=== PATIENT | male | born 1945 | race Two or more races ===

== ENCOUNTER 2022-07-15 13:54 | Inpatient (IN) | payer OTHER ==
[~2022-07-15] VITALS: Ht 172.7 cm; Wt 78.0 kg
--- NOTE | 2022-07-15 14:10 | NUR ---
Patient AOx4 able to express his concern. Per pts request, daughter at bedside. Daughter providing medical history, patient with no signs of distress or discomfort. Discussed plan of care, pt verbalized agreement.
[2022-07-15 14:48] LABS: BASOPHILS % (AUTO) 0.4 % (0.0-2.0); EOSINOPHILS % (AUTO) 6.3 % (0.0-6.0); HEMATOCRIT 43 % (39-51); HEMOGLOBIN 14.3 g/dL (13.5-17.5); LYMPHOCYTES # (AUTO) 1.4 K/uL (0.8-4.8); LYMPHOCYTES % (AUTO) 31.3 % (20.0-44.0); MEAN CORPUSCULAR HGB CONC 33 g/dl (31.0-36.0); MEAN CORPUSCULAR VOLUME 84 fL (80-96); MONOCYTES # (AUTO) 0.3 K/uL (0.1-1.30); MONOCYTES % (AUTO) 7.1 % (2.0-12.0); NEUTROPHILS # (AUTO) 2.4 K/uL (1.8-8.9); NEUTROPHILS % (AUTO) 54.9 % (43.0-81.0); PLATELET COUNT (AUTO) 100 K/uL (150-450); RED BLOOD CELL COUNT(AUTO) 5.16 MIL/uL (4.5-6.0); WHITE BLOOD COUNT (AUTO) 4.4 K/uL (4.3-11.0)
--- NOTE | 2022-07-15 14:51 | NUR ---
PAtient in bed with no sign of distress, made aware of pending results.
[2022-07-15 15:17] LABS: CALCIUM, SERUM 8.7 mg/dL (8.5-10.1); CARBON DIOXIDE 31 mmol/L (21-32); CHLORIDE 105 mmol/L (98-107); CREATININE 0.7 mg/dL (0.6-1.3); GLUCOSE 87 mg/dL (74-106); POTASSIUM 4.8 mmol/L (3.5-5.1); SODIUM SERUM 135 mmol/L (136-145); UREA NITROGEN, BLOOD 16 mg/dL (7-18)
[2022-07-15 15:29] LABS: ALANINE AMINOTRANSFERASE 29 U/L (12-78); ALBUMIN 3.9 g/dL (3.4-5.0); ALKALINE PHOSPHATASE 54 U/L (46-116); ASPARTATE AMINOTRANSFERASE 26 U/L (15-37); BILIRUBIN,DIRECT 0.1 mg/dL (0.0-0.2); BILIRUBIN,TOTAL 0.5 mg/dL (0.2-1.0); TOTAL PROTEIN, SERUM 7.2 g/dL (6.4-8.2)
--- NOTE | 2022-07-15 15:30 | NUR ---
MOVE SHEET SUBMITTED.
[2022-07-15] MEDS ORDERED: ASPIRIN 325 MG TABLET PO ONE (16:00)
[2022-07-15] MEDS ORDERED: ASPIRIN 325 MG TABLET ONE (16:03)
--- NOTE | 2022-07-15 16:36 | NUR ---
GOT BED 324-2 ADMITTING INFORMED.
--- NOTE | 2022-07-15 17:11 | NUR ---
Report given to Emi WILLINGHAM/3 jesus, patient clear to transfer.
[2022-07-15] MEDS ORDERED: Z GUARD REMEDY 4 OZ OINT TP PRN (17:30)
[2022-07-15] MEDS ORDERED: MAGNESIUM HYDROXIDE 30 ML UDC PO PRN (17:30)
[2022-07-15] MEDS ORDERED: MAG HYDROX/AL HYDROX/SIMETH 30 ML UDC PO PRN (17:30)
[2022-07-15] MEDS ORDERED: ACETAMINOPHEN 325 MG TABLET PO PRN (17:30)
[2022-07-15] MEDS ORDERED: ZOLPIDEM TARTRATE 5 MG TABLET PO PRN (17:30)
[2022-07-15] MEDS ORDERED: hydrALAZINE HCL IV 20 MG VIAL IV PRN (17:30)
[2022-07-15] MEDS ORDERED: NITROGLYCERIN 0.4 MG/TAB BOTTLE SL PRN (17:30)
[2022-07-15] MEDS ORDERED: ONDANSETRON HCL/PF 4 MG/2 ML VIAL IVP PRN (17:30)
[2022-07-15] MEDS ORDERED: MORPHINE SULFATE INJ 2 MG/ML DISP.SYRIN IV PRN (17:30)
--- NOTE | 2022-07-15 17:30 | NUR ---
MANAGER TRAINING AND DEVELOPMENTAFRICAN STUDIES PROFESSOR NOTES: PHONE REPORT RECEIVED FROM WENDY BENTLEY RN. PT CAME TO UNIT VIA GURNEY, AMBULATED TO BED. PT IS AWAKE ALERT AND ORIENTED X4. SPEAKS ALBANIAN AND MALTESE, ABLE TO MAKE NEEDS KNOWN, DAUGHTER TRANSLATED BY PHONE. ON RA WITH NO S/S OF SOB, DENIES CHEST PAIN AT THIS TIME. IV ACCESS AT L HAND #20 SL, INTACT, FLUSHING WELL. TELE MONITOR READS SR, HR= 75. BP = 170/103, WILL MEDICATE ORDERED, OTHERWISE ALL VITALS WNL. BODY CHECK DONE, NO OPEN WOUNDS, R UPPER ARM BRUISE DOCUMENTED WITH PHOTO IN CHART. PT IS ORIENTED TO UNIT AND STAFF, URGED TO USE CALL LIGHT FOR HELP, PT VERBALIZED UNDERSTANDING. TABLE AND CALL LIGHT WITHIN EASY REACH, ALL SAFETY MEASURES IN PLACE, WILL CONT WITH PLAN OF CARE DURING SHIFT.
[2022-07-15] MEDS: METOPROLOL TARTRATE 25 MG TABLET PO SCH (17:55)
--- NOTE | 2022-07-15 19:00 | NUR ---
CARE DIRECTOR OPENING NOTES: PT IS SITTING IN BED WITH HIS DAUGHTER AT HIS BED SIDE. PT IS CITIZEN OF [place] SPEAKING, AND HIS DAUGHTER IS INTERPRETING FOR HIM. HE IS ALERT AND ORIENTED, AO X 4. PT IS ON RA, TOLERATED WELL. NO S/S OF DISTRESS OR SOB. HE DENIES OF HAVING CHEST PAIN AT THIS MOMENT. IV ACCESS AT HIS L HAND #20G, SL. IV SITE IS PATENT AND INTACT, FLUSHING WELL. 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 SAFETY MEASURES ARE IN PLACED: BED IS LOCKED AND IN THE LOWEST POSITION; SIDE RAILS UP X 2; TABLE AND CALL LIGHT ARE WITHIN EASY REACH. WILL CONTINUE MONITORING THE PT AND PROVIDE THE CARE PT NEEDS.
--- NOTE | 2022-07-15 19:25 | NUR ---
TELE CLOSING RN NOTES: PT IS AWAKE ALERT AND ORIENTED X4. SPEAKS BELGIAN AND SPANISH, ABLE TO MAKE NEEDS KNOWN, FAMILY AT BEDSIDE. ON RA WITH NO S/S OF SOB, DENIES CHEST PAIN AT THIS TIME. IV ACCESS AT L HAND #20 SL, INTACT, FLUSHING WELL. TELE MONITOR READS SR, HR= 73. TABLE AND CALL LIGHT WITHIN EASY REACH, ALL SAFETY MEASURES IN PLACE, ENDORSED TO PM SHIFT.
[2022-07-15 20:00] VITALS: BP 153/86
--- NOTE | 2022-07-15 20:32 | NUR ---
CERTIFIED HYPERBARIC TECHNOLOGIST NOTE CALLED PHARMACY AND TALKED WITH PHARMACIST, MERE, REGARDING UNVERIFIED ORDER FOR NITRO-BID. WAS TOLD THAT SHE WILL VERIFY THE ORDER.
[2022-07-15] MEDS: NITROGLYCERIN PACKET 1 GM PACKET TD SCH (21:31)
[2022-07-15 21:56] VITALS: BP 153/86
[2022-07-16] VITALS (8 sets, daily range): BP systolic 120–167; BP diastolic 70–84
[2022-07-16] MEDS: NITROGLYCERIN PACKET 1 GM PACKET TD SCH ×2 (04:25→12:47)
--- NOTE | 2022-07-16 06:53 | NUR ---
FIRER WATERTENDER CLOSING NOTES: PT IS SLEEPING IN BED, EASILY BEING AROUSED. HE IS ALERT AND ORIENTED, AO X 4. PT IS ON RA, TOLERATED WELL. NO S/S OF DISTRESS OR SOB. HE DENIES OF HAVING CHEST PAIN AT THIS MOMENT. IV ACCESS AT HIS L HAND #20G, SL. IV SITE IS PATENT AND INTACT, FLUSHING WELL. 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 SAFETY MEASURES ARE IN PLACED: BED IS LOCKED AND IN THE LOWEST POSITION; SIDE RAILS UP X 2; TABLE AND CALL LIGHT ARE WITHIN EASY REACH. WILL ENDORSE NEXT SHIFT NURSE FOR CONTINUING PT CARE.
[2022-07-16 07:14] LABS: BASOPHILS % (AUTO) 0.5 % (0.0-2.0); EOSINOPHILS % (AUTO) 7.1 % (0.0-6.0); HEMATOCRIT 40 % (39-51); HEMOGLOBIN 13.5 g/dL (13.5-17.5); LYMPHOCYTES # (AUTO) 1.4 K/uL (0.8-4.8); MEAN CORPUSCULAR HGB CONC 34 g/dl (31.0-36.0); MEAN CORPUSCULAR VOLUME 83 fL (80-96); MONOCYTES # (AUTO) 0.3 K/uL (0.1-1.30); MONOCYTES % (AUTO) 7.9 % (2.0-12.0); NEUTROPHILS # (AUTO) 2.3 K/uL (1.8-8.9); NEUTROPHILS % (AUTO) 52.5 % (43.0-81.0); PLATELET COUNT (AUTO) 94 K/uL (150-450); RED BLOOD CELL COUNT(AUTO) 4.77 MIL/uL (4.5-6.0); WHITE BLOOD COUNT (AUTO) 4.4 K/uL (4.3-11.0)
--- NOTE | 2022-07-16 07:30 | NUR ---
MANAGER HEAVY DUTY OPENING NOTES: RECEIVED PT AWAKE, SITTING IN BED, ALERT/ORIENTED X4, [place] SPEAKING. PT IS ON RA, TOLERATED WELL. NO S/S OF DISTRESS OR SOB. DENIES CHEST PAIN AT THIS TIME. IV ACCESS AT HIS L HAND #20G, SL. IV SITE IS PATENT AND INTACT, FLUSHING WELL. 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 SAFETY MEASURES ARE IN PLACED: BED IS LOCKED AND IN THE LOWEST POSITION; SIDE RAILS UP X 2; TABLE AND CALL LIGHT ARE WITHIN EASY REACH. WILL ADMINISTER SCHEDULED MEDS PRESCRIBED AND CONTINUE TO MONITOR.
[2022-07-16 07:59] LABS: CALCIUM, SERUM 8.6 mg/dL (8.5-10.1); CREATININE 0.7 mg/dL (0.6-1.3); PHOSPHORUS 3.8 mg/dL (2.5-4.9); POTASSIUM 3.7 mmol/L (3.5-5.1)
[2022-07-16] MEDS ORDERED: TAMS-12 PO (08:09)
[2022-07-16] MEDS ORDERED: RIVA10TA PO (08:09)
[2022-07-16] MEDS ORDERED: FINA5TAB11 PO (08:09)
[2022-07-16] MEDS ORDERED: LISI20TA30 PO (08:09)
[2022-07-16] MEDS ORDERED: IBUP-1955 PO ×2 (08:09)
[2022-07-16] MEDS: METOPROLOL TARTRATE 25 MG TABLET PO SCH ×2 (08:12→17:58)
[2022-07-16] MEDS ORDERED: ASPIRIN 325 MG TABLET PO SCH (09:00)
[2022-07-16] MEDS ORDERED: IOHEXOL-350 100 ML VIAL IV ONE (10:20)
[2022-07-16] MEDS ORDERED: IV NS 0.9% 250 ML IV ONE (10:20)
[2022-07-16] MEDS ORDERED: CT SWABBABLE VALVE TRANS SET 1 EA INFUS.SET MC ONE (10:20)
[2022-07-16 10:27] LABS: BAND % (MANUAL) 1 % (0.0-5.0); EOSINOPHILS % (MANUAL) 8 % (0-4); LYMPHOCYTES % (MANUAL) 29 % (16-48); MONOCYTES % (MANUAL) 9 % (0-11.0); NEUTROPHILS % (MANUAL) 53 (42-76)
--- NOTE | 2022-07-16 10:27 | NUR ---
MANAGER OF BROADCAST CONTENT NOTES PT LEFT ROOM FOR CT PULMONARY ANGIOGRAM PROCEDURE. IV ACCESS PATENT AND INTACT. STABLE AND IN NO DISTRESS.
--- NOTE | 2022-07-16 10:35 | NUR ---
KNITTING DEMONSTRATOR NOTES PT BACK FORM CT PROCEDURE. NO DISTRESS NOTED
--- NOTE | 2022-07-16 19:04 | NUR ---
DEBEAKER NOTES PT AWAKE, ALERT AND ORIENTED, WALKING INSIDE HIS ROOM AND IN THE HALLWAY, NO COMPLAINT OF PAIN OR ANY DISCOMFORT, RESPIRATIONS NORMAL, FAMILY AT BEDSIDE, SEEN BY DR. NARANJO THIS MORNING, PT CLEARED BY DR. SILVEIRA, CT PULM AND BLE DOPPLER BOTH NEGATIVE, DR. NARANJO GAVE DISCHARGE ORDER, DISCHARGE AND MEDICATION INSTRUCTIONS PROVIDED TO PT AND FAMILY, VERBALIZED UNDERSTANDING, BELONGINGS ACCOUNTED FOR, PICKED UP BY DAUGHTER IN STABLE CONDITION.
[2022-07-17] MEDS ORDERED: LISINOPRIL (20MG) 20 MG TABLET PO SCH (09:00)
[2022-07-17] MEDS ORDERED: TAMSULOSIN 0.4 MG CAP.SR.24H PO SCH (09:00)
[2022-07-17] MEDS ORDERED: RIVAROXABAN 10 MG TABLET PO SCH (09:00)
[2022-07-17] MEDS ORDERED: FINASTERIDE (5 MG) 5 MG TABLET PO SCH (09:00)
== END 2022-07-16 18:30 | disposition home or self-care (01) | DRG 203 ==
LOC: ER 14:01 → TELE 17:19
PROVIDERS: ADMIT Internal Medicine; ATTEND Internal Medicine
DX: M94.0 Chondrocostal junction syndrome [Tietze] (principal); I10 Essential (primary) hypertension; M19.90 Unspecified osteoarthritis, unspecified site; Z79.01 Long term (current) use of anticoagulants; Z86.711 Personal history of pulmonary embolism; Z20.822 Contact with and (suspected) exposure to COVID-19; S40.021A Contusion of right upper arm, initial encounter; X58.XXXA Exposure to other specified factors, initial encounter; Y92.9 Unspecified place or not applicable; N40.0 Benign prostatic hyperplasia without lower urinary tract symptoms; Z87.891 Personal history of nicotine dependence; Z86.2 Personal history of diseases of the blood and blood-forming organs and certain disorders involving the immune mechanism; T45.515A Adverse effect of anticoagulants, initial encounter; T39.395A Adverse effect of other nonsteroidal anti-inflammatory drugs [NSAID], initial encounter; Y92.009 Unspecified place in unspecified non-institutional (private) residence as the place of occurrence of the external cause; R07.89 Other chest pain
CPT/HCPCS: 36415; 71045-TC; 80048-TC; 80076-TC; 83735-TC; 83880; 84100-TC; 84484-TC; 85025-TC; 85730-TC; 87081-TC; 93307-TC; 93970-TC; C9803; G0378; J7050; Q9967

== ENCOUNTER 2023-07-09 12:57 | Emergency (ER) | payer OTHER ==
[~2023-07-09] VITALS: Ht 182.9 cm; Wt 99.8 kg
[~2023-07-09 12:57] MED LIST: FINA5TAB11 PO; IBUP-1955 PO; LISI20TA30 PO; RIVA10TA PO; TAMS-12 PO
[2023-07-09 13:59] LABS: EOSINOPHILS # (AUTO) 0.3 K/uL (0.0-0.7); MEAN CORPUSCULAR VOLUME 84 fL (80-96); RED CELL DISTRIBUTION WIDTH 14.9 % (11.5-15.0); WHITE BLOOD COUNT (AUTO) 4.7 K/uL (4.3-11.0)
[2023-07-09 14:05] LABS: BASOPHILS % (AUTO) 0.6 % (0.0-2.0); HEMATOCRIT 44 % (39-51); HEMOGLOBIN 14.5 g/dL (13.5-17.5); LYMPHOCYTES # (AUTO) 1.4 K/uL (0.8-4.8); LYMPHOCYTES % (AUTO) 29.9 % (20.0-44.0); MEAN CORPUSCULAR HEMOGLOBIN 28 PG (26.0-33.0); MEAN CORPUSCULAR HGB CONC 33 g/dl (31.0-36.0); MONOCYTES # (AUTO) 0.3 K/uL (0.1-1.30); NEUTROPHILS # (AUTO) 2.7 K/uL (1.8-8.9); NEUTROPHILS % (AUTO) 57.5 % (43.0-81.0); PLATELET COUNT (AUTO) 112 K/uL (150-450); RED BLOOD CELL COUNT(AUTO) 5.22 MIL/uL (4.5-6.0)
[2023-07-09 14:10] LABS: CARBON DIOXIDE 33 mmol/L (21-32); CHLORIDE 106 mmol/L (98-107); CREATININE 0.7 mg/dL (0.6-1.3); GLUCOSE 117 mg/dL (74-106); POTASSIUM 3.8 mmol/L (3.5-5.1); SODIUM SERUM 141 mmol/L (136-145); UREA NITROGEN, BLOOD 16 mg/dL (7-18)
[2023-07-09 14:22] LABS: ALANINE AMINOTRANSFERASE 26 U/L (12-78); ALBUMIN 3.7 g/dL (3.4-5.0); ALKALINE PHOSPHATASE 64 U/L (46-116); ASPARTATE AMINOTRANSFERASE 16 U/L (15-37); BILIRUBIN,DIRECT 0.1 mg/dL (0.0-0.2); BILIRUBIN,TOTAL 0.6 mg/dL (0.2-1.0); CALCIUM, SERUM 8.9 mg/dL (8.5-10.1); NT-PRO BNP 255 pg/mL (0-125); TOTAL PROTEIN, SERUM 6.7 g/dL (6.4-8.2)
[2023-07-09] MEDS ORDERED: AMLO-213 PO (16:37)
[2023-07-09] MEDS ORDERED: AMLODIPINE BESYLATE 5 MG TABLET ONE ×2 (16:41→16:46)
[2023-07-09] MEDS: AMLODIPINE BESYLATE 5 MG TABLET PO ONE (16:51)
[2023-07-09 16:53] VITALS: BP 180/95; TEMP 98.1; O2SAT 96
== END 2023-07-09 16:49 | disposition home or self-care (01) ==
LOC: ER 13:08
DX: I10 Essential (primary) hypertension (principal); R07.89 Other chest pain
CPT/HCPCS: 36415; 71045-TC; 80048-TC; 80076-TC; 83880; 84484-TC; 85025-TC